=== PATIENT | male | born 1985 | race African-American/Black ===

== ENCOUNTER 2016-09-26 14:59 | Emergency (ER) | payer MEDICAID ==
[~2016-09-26] VITALS: Ht 185.4 cm; Wt 70.0 kg
[2016-09-26 15:02] VITALS: BP 125/69
[2016-09-26] MEDS ORDERED: PHEN100C4 PO (15:09)
== END 2016-09-26 21:24 | disposition left against medical advice (07) ==
LOC: ER 15:12
DX: R10.9 Unspecified abdominal pain (principal); Z53.21 Procedure and treatment not carried out due to patient leaving prior to being seen by health care provider
CPT/HCPCS: Z7610 ×2